=== PATIENT | male | born 1990 ===

== ENCOUNTER 2021-04-04 14:13 | Inpatient (IN) ==
[2021-04-04] MEDS ORDERED: PIPERACILLIN/TAZOBACTAM 3,375 MG in SODIUM CHLORIDE 0.9% 100 ML IV STA (15:05)
[2021-04-04] MEDS ORDERED: INDOCYANINE GREEN 25 MG VIAL IV ONE (15:19)
[2021-04-04] MEDS ORDERED: ACETAMINOPHEN 325 MG TABLET PO PRN (16:06)
[2021-04-04] MEDS ORDERED: BISACODYL 5 MG TABLET PO PRN (16:06)
[2021-04-04] MEDS ORDERED: ONDANSETRON 4 MG/2 ML VIAL IV PRN (16:06)
[2021-04-04] MEDS ORDERED: HYDROmorphone 2 MG/1 ML VIAL IV PRN (16:06)
[2021-04-04] MEDS ORDERED: KETOROLAC 30 MG/1 ML VIAL IV PRN (16:12)
[2021-04-04] MEDS: PIPERACILLIN/TAZOBACTAM 3,375 MG in SODIUM CHLORIDE 0.9% 100 ML IV SCH (19:32)
[2021-04-04] MEDS: LACTATED RINGERS 1,000 ML IV SCH (20:35)
[2021-04-05] MEDS: PIPERACILLIN/TAZOBACTAM 3,375 MG in SODIUM CHLORIDE 0.9% 100 ML IV SCH ×2 (00:18→08:09)
[2021-04-05 05:27] LABS: Basophils % 0.2 % (0.0-0.8); Eosinophils # 0.8 10*3/uL (0.0-0.87); Eosinophils % 4.7 % (0.00-10.9); Hematocrit 37.4 VOL% (42.0-52.0); Hemoglobin 12.2 GM/DL (14.0-18.0); Immature Granulocytes % 0.5 %; Immature Granulocytes Absolute 0.08 #; Lymphocytes # 2.7 10*3/uL (1.4-4.0); Lymphocytes % 16.4 % (21.2-54.2); Mean Corpuscular HGB Conc 32.6 GM/DL (32-36); Mean Corpuscular Volume 95.4 FL (87-102); Mean Platelet Volume 9.7 FL (9.6-12.0); Monocytes % 7.1 % (1.7-12.7); Neutrophils % 71.1 % (38.7-73.9); Platelet Count 394 T/CUMM (130-400); Red Blood Count 3.92 MC/CUMM (3.8-5.5); Red Cell Distribution Width 12.8 % (9.3-17.3); White Blood Count 16.3 T/CUMM (4-12)
[2021-04-05 05:55] LABS: Albumin 2.6 G/DL (3.4-5.0); Calcium 8.3 MG/DL (8.5-10.1); Osmolality,Calculated 274.5 MOS/KG (273-304); Potassium 3.5 MMOL/L (3.5-5.1); Total Protein 6.9 G/DL (6.4-8.2)
[2021-04-05] MEDS: LACTATED RINGERS 1,000 ML IV SCH ×3 (07:40→17:51)
[2021-04-05] MEDS ORDERED: ROCURONIUM 50 MG/5 ML VIAL IV ONE (07:52)
[2021-04-05] MEDS ORDERED: LIDOCAINE 2% 5 ML VIAL ONE (07:52)
[2021-04-05] MEDS ORDERED: MIDAZOLAM 2 MG/2 ML VIAL ONE (07:52)
[2021-04-05] MEDS ORDERED: propofoL 200 MG/20 ML VIAL IV ONE (07:52)
[2021-04-05] MEDS ORDERED: fentaNYL 100 MCG/2 ML VIAL ONE ×2 (07:52→09:47)
[2021-04-05] MEDS ORDERED: ONDANSETRON 4 MG/2 ML VIAL ONE (07:52)
[2021-04-05] MEDS ORDERED: INDOCYANINE GREEN 25 MG VIAL IV ONE (08:00)
[2021-04-05] MEDS ORDERED: TISSUE ADHESIVE 1 EACH APPLICATOR TOP ONE (08:23)
[2021-04-05] MEDS ORDERED: BUPIVACAINE MPF 0.25% 30 ML VIAL ONE (08:23)
[2021-04-05] MEDS ORDERED: LIDOCAINE 1%/EPI INJ 20 ML VIAL ONE (08:23)
[2021-04-05] MEDS ORDERED: PANTOPRAZOLE 40 MG TABLET PO SCH (09:00)
[2021-04-05] MEDS ORDERED: KETOROLAC 30 MG/1 ML VIAL ONE (09:25)
[2021-04-05] MEDS ORDERED: ACETAMINOPHEN INJ 1,000 MG/100 ML VIAL IV ONE (09:25)
[2021-04-05] MEDS ORDERED: DEXAMETHASONE 4 MG/1 ML VIAL ONE (09:41)
[2021-04-05] MEDS ORDERED: GLYCOPYRROLATE 0.4 MG/2 ML VIAL ONE (09:44)
[2021-04-05] MEDS ORDERED: NEOSTIGMINE 10 MG/10 ML VIAL ONE (09:45)
[2021-04-05] MEDS ORDERED: SEVOFLURANE 1 UNIT/15 MINUTE INH ONE (10:13)
[2021-04-05] MEDS ORDERED: ONDANSETRON 4 MG/2 ML VIAL IV PRN (10:36)
[2021-04-05] MEDS ORDERED: HYDROmorphone 2 MG/1 ML VIAL IV PRN (10:36)
[2021-04-05 15:59] VITALS: BP 141/64
== END 2021-04-05 18:20 | disposition home or self-care (01) | DRG 419 ==
LOC: EDBD → EDUNIT# → N.ED 14:13 → N.EDINP 16:06 → N.3E 18:12
PROVIDERS: ADMIT Surgery; ATTEND Surgery